=== PATIENT | female | born 1935 | race Caucasian/White ===

== ENCOUNTER → 2017-04-06 17:30 | Outpatient (CLI) | payer MEDICARE | END | disposition home or self-care (01) | LOC: D.LABREF 17:30 | DX: I50.9 Heart failure, unspecified (principal); E11.9 Type 2 diabetes mellitus without complications; N17.9 Acute kidney failure, unspecified; J81.1 Chronic pulmonary edema ==

== ENCOUNTER 2017-04-19 14:25 | Inpatient (IN) | payer MEDICARE, BC ==
[~2017-04-19] VITALS: Ht 149.9 cm; Wt 59.8 kg
[2017-04-19 16:41] LABS: BASOPHILS 0.2 % (0-2); EOSINOPHILS 0.7 % (0-7); HEMATOCRIT 39.4 % (36.0-48.0); HEMOGLOBIN 11.2 g/dL (12-16); IMMATURE GRANULOCYTES 1.9 % (0-5); LYMPHOCYTES 16.2 % (15-50); MCH 33.5 pg (26.0-34.0); MCHC 28.4 g/dL (31.0-37.0); MEAN PLATELET VOLUME 10.1 fL (7.4-10.4); MONOCYTES 5.2 % (2-11); NEUTROPHILS 75.8 % (40-80); PLATELET COUNT 155 10x3/uL (130-400); RBC 3.34 10x6/uL (4.00-5.40); RDW 13.3 % (11.5-14.5); WBC 5.7 10x3/uL (4.8-10.8)
[2017-04-19 17:22] LABS: ALBUMIN 2.8 g/dL (3.4-5.0); ANION GAP 0.3 mmol/L (8-16); BILIRUBIN - TOTAL 0.35 mg/dL (0.2-1.3); CALCIUM 10.4 mg/dL (8.5-10.1); CREATININE - SERUM 0.9 mg/dL (0.6-1.3); POTASSIUM - SERUM 5.3 mmol/L (3.5-5.1); PROTEIN - SERUM 5.8 g/dL (6.4-8.2)
[2017-04-19 18:21] LABS: APPEARANCE CLEAR (CLEAR); BILIRUBIN NEGATIVE (NEGATIVE); COLOR YELLOW (YELLOW); GLUCOSE NEGATIVE (NEGATIVE); KETONE NEGATIVE (NEGATIVE); LEUKOCYTE ESTERASE NEGATIVE (NEGATIVE); NITRITE NEGATIVE (NEGATIVE); PROTEIN TRACE mg/dL (NEGATIVE); UROBILINOGEN NORMAL (NORMAL)
--- NOTE | 2017-04-19 18:51 | NUR ---
CM Emergency contact #[phone], America Watkins (dtr). Marily Olivo RN CM
--- NOTE | 2017-04-19 23:03 | NUR ---
REC'D PATIENT SITTING UP IN BED BY STRETCHER. IS ALERT AND ORIENTED X4. DENIED PAIN AT THIS TIME. HAS EDEMA IN BILATERAL LOWER LEGS +3 AND BILATERAL ARMS. IS HUNGRY WILL BRING HER A SANDWICH. INSTRUCTED TO CALL IF NEEDED ANYTHING. VERBALIZED UNDERSTANDING. BED LOW, LOCKED, CALL LIGHT IN REACH.
[2017-04-20 00:25] VITALS: BP 151/62
--- NOTE | 2017-04-20 01:05 | NUR ---
PATIENT IS ASLEEP. NO DISTRESS NOTED. WILL CONT TO MONITOR. BED LOW, LOCKED, CALL LIGHT IN REACH.
[2017-04-20 04:33] VITALS: BP 135/69
--- NOTE | 2017-04-20 06:42 | NUR ---
PATIENT IS RESTING IN BED. CHANGED BED COMPLETY OUT WITH KEI JEFFRIES. ADMINISTERED MEDS PRESCRIBED. DENIED FURTHER NEEDS AT THIS TIME. INSTRUCTED TO CALL IF NEEDED ANYTHING. BED LOW, LOCKED, CALL LIGHT IN REACH.
[2017-04-20 07:07] LABS: ANION GAP 1.1 mmol/L (8-16); CALCIUM 10.3 mg/dL (8.5-10.1); CARBON DIOXIDE 44.8 mmol/L (21.0-32.0); CREATININE - SERUM 0.9 mg/dL (0.6-1.3); POTASSIUM - SERUM 4.9 mmol/L (3.5-5.1)
[2017-04-20] MEDS ORDERED: VITAMIN D250000 UNIT PO (07:13)
[2017-04-20] MEDS ORDERED: FOLATE0.4 MG PO (07:14)
[2017-04-20] MEDS ORDERED: METFORMIN HCL500 M1 PO (07:15)
[2017-04-20] MEDS ORDERED: ISOSORBIDE MONO30 M1 PO (07:15)
[2017-04-20] MEDS ORDERED: LOVASTATIN40 MG PO (07:15)
[2017-04-20] MEDS ORDERED: COREG12.5 MG PO (07:15)
[2017-04-20] MEDS ORDERED: ZYLOPRIM100 MG PO (07:15)
[2017-04-20] MEDS ORDERED: ULTRACET TABLET1 TAB PO (07:16)
[2017-04-20] MEDS ORDERED: K-DUR20 MEQ PO (07:17)
--- NOTE | 2017-04-20 07:45 | NUR ---
AM ROUNDING- RECEIVED REPORT FROM INDEPENDENT BEAUTY CONSULTANT NURSE SERGIO. PT IS CURRENTLY LAYING IN BED ON BACK WITH EYES CLOSED RESTING. DNR PER REPORT. ON 02 AT 3L VIA NC. NO MONITOR. IV SEEN TO LEFT WRIST THAT IS CURRENTLY SALINE LOCKED. BEDSIDE COMMODE AT BEDSIDE. LAB CALLED DURING REPORT WITH CRITICAL LAB (C02 OF 44.8), SERGIO FILLED OUT CRITICAL LAB SHEET AND PAGED ELIZ VALERO BRINE TANK OPERATOR TO INFORM HER OF THIS. WILL AWAIT CALLBACK. WILL CONTINUE TO MONITOR AND CONTINUE WITH PLAN OF CARE.
--- NOTE | 2017-04-20 07:49 | NUR ---
AM ROUNDING- RECEIVED REPORT FROM CORPORATE AFFAIRS MANAGER NURSE SERGIO. PT IS CURRENTLY LAYING IN BED ON BACK WITH EYES CLOSED RESTING. DNR PER REPORT. ON 02 AT 3L VIA NC. NO MONITOR. IV SEEN TO LEFT WRIST THAT IS CURRENTLY SALINE LOCKED. LAB CALLED DURING REPORT WITH CRITICAL LAB (C02 OF 44.8). SERGIO FILLED OUT CRITICAL LAB SHEET AND PAGED ELIZ VALERO NP. WILL AWAIT CALLBACK. WILL CONTINUE TO MONITOR AND CONTINUE WITH PLAN OF CARE.
[2017-04-20 08:00] VITALS: BP 84/47
--- NOTE | 2017-04-20 10:12 | HP ---
PATIENT: GERMAINE PRABHAKAR MEDICAL RECORD: [id number] ACCOUNT: [id number] LOCATION:[address] : 37 ADMISSION DATE: 04/19/17 HISTORY AND PHYSICAL EXAMINATION HISTORY OF PRESENT ILLNESS: Ms. Prabhakar is a 81-year-old white female that presents to the Emergency Room with increasing shortness of breath. Her primary care physician is Dr. Pao Gee. On presentation to the Emergency Room, she was found to have bilateral pleural effusions. There is some question of an infiltrate, but she is afebrile and a normal white count with normal differential. She is admitted at this time with congestive heart failure. Her BUN is markedly elevated. She has marked edema. She has no infectious signs or symptoms. PAST MEDICAL HISTORY: Significant for known congestive heart failure, COPD, diabetes mellitus, renal insufficiency, gout, hyperlipidemia, O2 dependence. She is a DNR. ALLERGIES: SULFA. HOME MEDICATIONS: Include allopurinol 100 mg daily, aspirin 325 daily, Coreg 12.5 twice a day, folic acid 400 mg daily, isosorbide mononitrate 30 mg one half tab daily, lovastatin 40 mg a day, metformin 500 daily, O2, spironolactone 50 twice a day, tramadol p.r.n. and trazodone at bedtime. FAMILY HISTORY: Noncontributory. SOCIAL HISTORY: Noncontributory. The patient is a very poor historian and no family are present. REVIEW OF SYSTEMS: She really does not have much in the way of complaints. Denies any chest pain. She does complain of shortness of breath and increasing swelling. No abdominal pain. No nausea or vomiting. PHYSICAL EXAMINATION: HEENT: Head is normocephalic, sclerae nonicteric. Mucous membranes are moist. HEART: Regular with II/ murmur. LUNGS: With bilateral rales. ABDOMEN: Soft. EXTREMITIES: Lower extremities reveal marked edema with venous stasis. NEUROLOGIC: Without any acute changes. IMPRESSION: Congestive heart failure. PLAN: Admit, IV diuretics. See orders for plan. TRANSINT:[id number] Voice Confirmation ID: [id number] DOCUMENT ID: [id number] HISTORY AND PHYSICAL [id number] GERMAINE PRABHAKAR MARISOL GU DO at 1012 CC: [id number] DICTATION DATE: 04/19/17 182 ACID STRENGTH INSPECTOR: 04/19/172110 ADM IN [facility] [address] [id number]
[2017-04-20 12:00] VITALS: BP 131/48
[2017-04-20 13:05] VITALS: Ht 149.9 cm; Wt 59.8 kg
--- NOTE | 2017-04-20 13:42 | NUR ---
DR. GU ON UNIT. INFORMED HIM OF PTS CRITICAL CO2 LEVEL (44.8). NO NEW ORDERS RECEIVED.
--- NOTE | 2017-04-20 13:51 | NUR ---
DNR ORDER SHEET FOR HOSPITAL SIGNED BY DR. CARPIO, WITNESSED BY MYSELF AND PRISCILA VARELA. DNR SHEET PLACED IN CHART.
[2017-04-20 16:00] VITALS: BP 132/50
--- NOTE | 2017-04-20 18:23 | NUR ---
PT IS CURRENTLY SITTING UP IN BED EATING DINNER. PT DENIES ANY NEED AT CURRENT TIME. WILL CONTINUE TO MONITOR.
--- NOTE | 2017-04-20 21:28 | NUR ---
HS MEDS GIVEN WITH FRESH ICE WATER. BS 186, NO INSULIN GIVEN AT PT REQUEST. PT DENIES PAIN OR NEEDS, BED LOW, CL IN REACH.
[2017-04-21] VITALS (7 sets, daily range): BP systolic 102–130; BP diastolic 40–80
--- NOTE | 2017-04-21 01:01 | NUR ---
RESTING WITH EYES CLOSED, RESPERATIONS EVEN, NO S/S DISTRESS NOTED.
[2017-04-21 06:32] LABS: CALC OSMOLALITY 302 mosm/kg (275-300); CALCIUM 9.6 mg/dL (8.5-10.1); CHLORIDE - SERUM 102 mmol/L (98-107); CREATININE - SERUM 1.1 mg/dL (0.6-1.3); GLUCOSE 124 mg/dL (74-106); POTASSIUM - SERUM 4.4 mmol/L (3.5-5.1); PRO BNP 7864 pg/mL (0-450); SODIUM 146 mmol/L (136-145); UREA NITROGEN 42 mg/dL (7-18); eGFR NON AFRICAN AMERICAN 51 mL/min (90-120)
[2017-04-21 06:33] LABS: CARBON DIOXIDE 49.4 mmol/L (21.0-32.0)
--- NOTE | 2017-04-21 07:40 | NUR ---
AM ROUNDING- RECEIVED REPORT FROM STAVE HEWER NURSE HANNY. PT IS CURRENTLY LAYING IN BED ON BACK WITH EYES CLOSED RESTING. DNR PER ORDER. ON 02 AT 3L VIA NC. NO MONITOR. IV SEEN TO LEFT WRIST THAT IS CURRENTLY SALINE LOCKED. NO NEED AT CURRENT TIME. WILL CONTINUE TO MONITOR AND CONTINUE WITH PLAN OF CARE.
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
--- NOTE | 2017-04-21 17:34 | NUR ---
PT IS CURRENTLY SITTING UP IN BED WITH EYES OPEN EATING DINNER AND WATCHING TV. PT DENIES ANY NEED AT CURRENT TIME. WILL CONTINUE TO MONITOR.
--- NOTE | 2017-04-21 19:30 | NUR ---
RESUMED CARE OF PT, LYING IN BED WITH EYES CLOSED RESPIRATIONS EVEN AND UNLABORED ON 3LPM VIA NC. LEFT WRIST SALINE LOCKED. CALL LIGHT IN REACH. WILL CONTINUE TO MONITOR. SEE NURSE ASSESSMENT.
--- NOTE | 2017-04-22 02:19 | NUR ---
LYING IN BED RESPIRATIONS EVEN AND UNLABORED. CALL LIGHT IN REACH. WILL CONTINUE TO MONITOR.
[2017-04-22 03:44] VITALS: BP 144/44
[2017-04-22 06:35] LABS: ANION GAP 1.1 mmol/L (8-16); POTASSIUM - SERUM 4.1 mmol/L (3.5-5.1)
[2017-04-22 08:01] VITALS: BP 129/45
--- NOTE | 2017-04-22 08:20 | NUR ---
INTRODUCED MYSELF TO PT PRIMARY RN FOR TODAYS SHIFT. SHIFT ASSESSMENT COMPLETED. PT IS A&O AND RESTING QUIETLY SITTING UP IN BED EATING BREAKFAST. RR NONLABORED WITH NC @3L IN PLACE. PT HAS A L.WRIST PIV WITH DRSG CDI AND SWAB CAPS IN USE. BILAT LE ON PT ARE SWOLLEN +3 PITTING EDEMA WITH WEAK PULSES AND REDDENED THIN SKIN. PT ALSO HAS WEEPING EDEMA TO HER R.FA AND THAT ARM IS RED WITH THIN SKIN WELL. PROPPED BILAT FEET UP ON A PILLOW ALONG WITH THE R.ARM. PT VOICED THANKS. PASSED PTS MORNING MEDS WITH APPLESAUCE SHE REQUESTED. NO FURTHER NEEDS AT THIS TIME. CL IN REACH, BED IN LOWEST, SIDE RAILS X2. WILL CTM.
[2017-04-22 12:09] VITALS: BP 111/49
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
[2017-04-22 16:36] VITALS: BP 126/50
--- NOTE | 2017-04-22 18:21 | NUR ---
LEFT WRIST PIV INFILTRATED. D/C WITH CATHETER TIP FULLY INTACT. NEW ACCESS GAINED WITH 20 GUAGE IN L.HAND X1 ATTEMPT. PT INCONTINENT AND HAS SOILED LINENS WITH URINE. CHANGED OUT LINENS AND CLEANED PT UP. PT NOW RESTING QUIETLY IN BED DENIES ANY CURRENT PAIN OR NEEDS. WILL CTM.
--- NOTE | 2017-04-22 21:06 | NUR ---
HS MEDS GIVEN WITH APPLE SAUCE. BS 138, NO COVERAGE PER S/S. PT DENIES PAIN OR NEEDS, BED LOW, CL IN REACH, WILL CONT TO MONITOR.
[2017-04-22 21:42] VITALS: BP 113/45
[2017-04-22 23:39] VITALS: BP 111/33
--- NOTE | 2017-04-23 01:14 | NUR ---
AWAKE IN BED, DENIES NEEDS, WILL CONT TO MONITOR.
[2017-04-23 04:01] VITALS: BP 121/43
--- NOTE | 2017-04-23 04:16 | NUR ---
RESTING WITH EYES CLOSED, RESPERATIONS EVEN, NO S/S DISTRESS NOTED.
[2017-04-23 06:01] LABS: BASOPHILS 0 % (0-2); EOSINOPHILS 1.9 % (0-7); HEMATOCRIT 32.9 % (36.0-48.0); HEMOGLOBIN 9.8 g/dL (12-16); LYMPHOCYTES 21.5 % (15-50); MCH 33.6 pg (26.0-34.0); MCHC 29.8 g/dL (31.0-37.0); MCV 112.7 fL (80.0-100.0); MEAN PLATELET VOLUME 10.1 fL (7.4-10.4); MONOCYTES 8.4 % (2-11); NEUTROPHILS 67.2 % (40-80); PLATELET COUNT 125 10x3/uL (130-400); RBC 2.92 10x6/uL (4.00-5.40); RDW 12.8 % (11.5-14.5); WBC 6.9 10x3/uL (4.8-10.8)
[2017-04-23 06:24] LABS: CALC OSMOLALITY 297 mosm/kg (275-300); CHLORIDE - SERUM 98 mmol/L (98-107); GLUCOSE 117 mg/dL (74-106); POTASSIUM - SERUM 3.5 mmol/L (3.5-5.1); PRO BNP 5735 pg/mL (0-450); SODIUM 145 mmol/L (136-145); UREA NITROGEN 36 mg/dL (7-18); eGFR NON AFRICAN AMERICAN 57 mL/min (90-120)
[2017-04-23 06:37] LABS: CARBON DIOXIDE 53.3 mmol/L (21.0-32.0)
[2017-04-23 08:24] VITALS: BP 123/62
--- NOTE | 2017-04-23 10:02 | NUR ---
CM Note: Patients daughter (America Jeff) called to speak with CM about her mother. Daughter stated that the patient had fallen at home and [facility], [facility] [place]. [facility] sent her home with them coming out to her house 6 hours a day (3 hours in AM and 3 hours in PM ) to help with daily needs. [facility] was also coming to the house, but she is not sure how often they were coming. Daughter also states that she has spoke with her mom and she is confused at times. Both patients children who live out of state are coming in on April 27- May 05 to assess pts. needs. Daughter was not sure what type of care her mom would need and mentioned about assisted living in [place] where the daughter lives, but would know more once she arrived in [place]. Inpatient rehab may be an option? Prescreening referral sent. CM will continue to follow and assist as needed with planning/needs Ethel Quevedo RN
--- NOTE | 2017-04-23 10:21 | NUR ---
Rehab Note- Acute Rehab Prescreen Order received. [facility] PT Eval for possible IRF stay. Will follow the patient at this time. Thank you for this referral! Cathie Berger RN Clinical Liaison, [facility] Rehab/[place]
[2017-04-23 12:01] VITALS: BP 106/45
--- NOTE | 2017-04-23 12:03 | NUR ---
FSBS 296. PT REC'D 6 UNITS OF INSULIN PER SS. PT IS SITTING UP IN BED RESTING QUIETLY WATCHING TV. DENIES ANY CURRENT PAIN OR NEEDS JUST WAITING ON LUNCH. CL IN REACH, BED IN LOWEST, SIDE RAILS X2 AND BUILT IN BED ALARM ON. WILL CTM.
[2017-04-23 16:00] VITALS: BP 129/56
--- NOTE | 2017-04-23 17:54 | NUR ---
PTS L.HAND INFILTRATED. D/C WITH CATHETER TIP FULLY INTACT. NEW 22 GUAGE STARTED IN PTS L.FA WITH DRSG CDI AND SWAB CAPS IN USE.
--- NOTE | 2017-04-23 18:08 | EC ---
PATIENT:GERMAINE CANCHOLA DATE OF SERVICE: 04/19/17 SEX: F MEDICAL RECORD: [id number] DATE OF : 37 LOCATION:D.M2 D.213 AGE OF PATIENT: 81 ADMISSION DATE: 04/19/17 REFERRING PHYSICIAN: INTERPRETING PHYSICIAN: GWENDOLYN OBANDO MD ECHOCARDIOGRAM REPORT ECHO CHARGES 4 ECHO COMPLETE CLINICAL DIAGNOSIS: CHF ECHOCARDIOGRAPHIC MEASUREMENTS (adult normal given) AC root (d.<3.7cm) 3.1 LV Septum d (<1.2 cm> 1.7 Valve Excursion 1.9 LV Septum (systole) 1.8 Left Atria (s.<4.0cm> 4.7 LVPW d(<1.2cm) 1.4 RV (d.<2.3cm) 2.1 LVPW (sytole) 1.9 LV diastole(<5.6CM) 4.4 MV E-F(>70mm/sec) LV systole 2.2 LVOT Diameter 1.7 MV exc.(>10mm) Est.ejection fraction (50-75%) Pericardial Effusion N DOPPLER: LVIT A 158 E 107 LA RVSP 40.0 LVOT 97.0 AOP1/2T Asc. Ao 216 RVOT 83.0 RA PA 128 AV Gradient Peak 19.0 AV Mean 7.0 AV Area 1.1 MV Gradient Peak 14.0 MV Mean 4.3 MV Area COMMENTS: Green Meat Grader: Laron ONTIVEROSOE [employer] Set Up Mechanic:1 Dr. Obando TAPE# PACS DATE OF SERVICE: 04/21/2017 ECHOCARDIOGRAM FINDINGS: 1. Left ventricular chamber size is within normal limits. Left ventricular systolic function is normal. Overall ejection fraction estimated at 60%. 2. Left atrium is enlarged at 4.7 cm. Right atrium and right ventricular chamber sizes are mildly dilated. 3. Valvular structures have normal structure and motion. ECHOCARDIOGRAM REPORT [id number] GERMAINE CANCHOLA 4. Doppler interrogation reveals trace mitral regurgitation, moderate tricuspid regurgitation, no other valvular insufficiency or stenosis. Pulmonary systolic pressure is upper limits of normal to mildly elevated at 40 mmHg. 5. No evidence of pericardial effusion or left ventricular thrombus. TRANSINT:[id number] Voice Confirmation ID: [id number] DOCUMENT ID: [id number] GWENDOLYN OBANDO MD at 1808 CC: [id number] DICTATION DATE: 04/21/17 1716 BAND REAMER MACHINE OPERATOR: 04/22/17 0235 ADM IN [facility] [address] [id number]
--- NOTE | 2017-04-23 19:20 | NUR ---
RECEIVED REPORT, PT IS CONFUSED, BED IS LOW, SRX2, BED ALARM IS ON, WILL CONTINUE WITH PLAN OF CARE
[2017-04-23 20:19] VITALS: BP 115/54
--- NOTE | 2017-04-23 22:00 | NUR ---
PLACED STEPHENSON USING SHOE STITCHER ODD,URINE IS FLOWING
[2017-04-24 00:41] VITALS: BP 109/42
--- NOTE | 2017-04-24 04:00 | NUR ---
ASSESSMEMT COMPLETE, SEE FLOWSHEET, PT SLEEPING, NO DISTRESS NOTICED, BED ALARM IS ON, CALL LIGHT IN REACH, WILL CONTINUE TO MONITOR
[2017-04-24 04:23] VITALS: BP 112/48
[2017-04-24 05:47] LABS: BASOPHILS 0 % (0-2); EOSINOPHILS 0 % (0-7); HEMATOCRIT 32.8 % (36.0-48.0); HEMOGLOBIN 9.9 g/dL (12-16); IMMATURE GRANULOCYTES 0.5 % (0-5); LYMPHOCYTES 14.4 % (15-50); MCH 33.6 pg (26.0-34.0); MCHC 30.2 g/dL (31.0-37.0); MCV 111.2 fL (80.0-100.0); MEAN PLATELET VOLUME 10.3 fL (7.4-10.4); MONOCYTES 1.6 % (2-11); NEUTROPHILS 83.5 % (40-80); PLATELET COUNT 135 10x3/uL (130-400); RBC 2.95 10x6/uL (4.00-5.40); RDW 12.8 % (11.5-14.5); WBC 6.3 10x3/uL (4.8-10.8)
[2017-04-24 06:09] LABS: ANION GAP 2.9 mmol/L (8-16); CALCIUM 8.8 mg/dL (8.5-10.1); CREATININE - SERUM 1.1 mg/dL (0.6-1.3); POTASSIUM - SERUM 3.7 mmol/L (3.5-5.1)
[2017-04-24 06:51] LABS: CARBON DIOXIDE 49.8 mmol/L (21.0-32.0)
--- NOTE | 2017-04-24 07:15 | NUR ---
AM ROUNDS- PT IN BED, SLEEPING AT THIS TIME. CALL LIGHT IN REACH, NAD NOTED, WILL CONTINUE TO MONITOR.
[2017-04-24 08:00] VITALS: BP 103/36
--- NOTE | 2017-04-24 08:39 | NUR ---
ADMINISTERED MORNING MEDICATIONS, WITH APPLE SAUCE. PT IN BED, EATING BREAKFAST. DENIES ANY NEEDS AT THIS TIME. CALL LIGHT IN REACH, NAD NOTED, WILL CONTINUE TO MONITOR.
--- NOTE | 2017-04-24 11:01 | NUR ---
Nutrition Follow Up: Pt reported that she was not feeling too good. She said that her appetite was fair. RD discussed changing diet to NCS due to elevated blood sugar but pt refused stating that she "really wanted a piece of pie." Pt is eating 79% meal avg on a PRABHAKAR diet. Wt loss of ~33# since admit noted. No BM since admit. Labs reviewed - Glucose elevated. Meds noted including Lasix, Solu-Medrol, Folic Acid, Humalog. Rec continue current diet. RD will monitor pt progress.
--- NOTE | 2017-04-24 11:16 | NUR ---
BLOOD SUGAR OF 376, GAVE 10 UNITS OF HUMALOG PER S/S. PT IN BED, DENIES ANY NEEDS AT THIS TIME. CALL LIGHT IN REACH, NAD NOTED, WILL CONTINUE TO MONITOR.
[2017-04-24 12:00] VITALS: BP 122/38
[2017-04-24 15:52] VITALS: BP 124/44
[2017-04-24] MEDS ORDERED: IPRAT-ALBUT 0.5-3 ML INH (16:02)
[2017-04-24] MEDS ORDERED: PROTONIX40 MG PO (16:03)
[2017-04-24] MEDS ORDERED: ASPIRIN325 MG PO (16:03)
[2017-04-24] MEDS ORDERED: LASIX INJ40 MG/4 ML IV (16:03)
[2017-04-24] MEDS ORDERED: HUMALOG 30100 UNITS/ SC ×2 (16:04→18:23)
[2017-04-24] MEDS ORDERED: MUCINEX600 MG PO (16:05)
[2017-04-24] MEDS ORDERED: SINGULAIR10 MG PO (16:05)
[2017-04-24] MEDS ORDERED: PULMICORT0.5 MG/21 INH (16:05)
[2017-04-24] MEDS ORDERED: BROVANA15 MCG/2 M INH (16:06)
[2017-04-24] MEDS ORDERED: SOLU MEDROL IV (16:07)
--- NOTE | 2017-04-24 17:00 | NUR ---
BLOOD SUGAR OF 423, 12 UNIT OF HUMALOG GIVEN PER SLIDING SCALE AND ELIZ VALERO NOTIFIED. PT EATING DINNER, DENIES ANY NEEDS AT THIS TIME. CALL LIGHT IN REACH, NAD NOTED, WILL CONTINUE TO MONITOR.
--- NOTE | 2017-04-24 17:21 | NUR ---
NOTIFIED ELIZ VALERO ABOUT BLOOD SUGAR OF 423. INFOMRED HER THAT I GAVE PT 12UNITS PER SLIDING SCALE. ELIZ STATED TO CHANGE HER SLIDING SCALE TO INTERMITTEN.
[2017-04-24] MEDS ORDERED: FUROSEMIDE20 MG PO (18:21)
--- NOTE | 2017-04-24 19:44 | NUR ---
CALLED REPORT TO [facility] IN REHAB, PT DISCHARGED TO REHAB, TAKEN DOWN VIA WHEELCHAIR
== END 2017-04-24 19:48 | DRG 291 ==
LOC: D.ER 14:25 → D.M2 17:20
PROVIDERS: Emergency Medicine; Family Medicine; ADMIT Family Medicine
PROC: 0T9B70Z Drainage of Bladder with Drainage Device, Via Natural or Artificial Opening (ICD-10-PCS; principal; 2017-04-24)
DX: I13.0 Hypertensive heart and chronic kidney disease with heart failure and stage 1 through stage 4 chronic kidney disease, or unspecified chronic kidney disease (principal); I50.31 Acute diastolic (congestive) heart failure; E87.0 Hyperosmolality and hypernatremia; E11.22 Type 2 diabetes mellitus with diabetic chronic kidney disease; E11.65 Type 2 diabetes mellitus with hyperglycemia; J44.9 Chronic obstructive pulmonary disease, unspecified; Z66 Do not resuscitate; I08.1 Rheumatic disorders of both mitral and tricuspid valves; E78.5 Hyperlipidemia, unspecified; N18.3 Chronic kidney disease, stage 3 (moderate)

== ENCOUNTER 2017-04-24 16:49 | Inpatient (IN) | payer MEDICARE, BC ==
[~2017-04-24] VITALS: Ht 149.9 cm; Wt 53.6 kg
[~2017-04-24 16:49] MED LIST: ASPIRIN325 MG PO; BROVANA15 MCG/2 M INH; COREG12.5 MG PO; FOLATE0.4 MG PO; HUMALOG 30100 UNITS/ SC; IPRAT-ALBUT 0.5-3 ML INH; ISOSORBIDE MONO30 M1 PO; K-DUR20 MEQ PO; LASIX INJ40 MG/4 ML IV; LOVASTATIN40 MG PO; METFORMIN HCL500 M1 PO; MUCINEX600 MG PO; PROTONIX40 MG PO; PULMICORT0.5 MG/21 INH; SINGULAIR10 MG PO; SOLU MEDROL IV; ULTRACET TABLET1 TAB PO; VITAMIN D250000 UNIT PO; ZYLOPRIM100 MG PO
[2017-04-24] MEDS ORDERED: FUROSEMIDE20 MG PO (18:21)
[2017-04-24] MEDS ORDERED: HUMALOG 30100 UNITS/ SC (18:23)
--- NOTE | 2017-04-24 20:00 | NUR ---
PT RECEIVED TO UNIT AT 1940 IN WHEELCHAIR WITH NURSE AND AID FROM MEDICAL SURGICAL FLOOR. PT TRANSFERED WITH MOD ASSIST FROM WHEELCHAIR TO BED. RECEIVING O2 VIA NASAL CANULA AT 3LPM. REQUEST PHONE NUMBER FOR DAUGHTER AND IT WAS GIVEN. PT ORIENTED TO ROOM, PHONE, BED, AND CALL LIGHT. NO OTHER NEEDS MADE KNOWN. CALL LIGHT IN REACH.
[2017-04-24 22:49] LABS: CALCIUM 8.6 mg/dL (8.5-10.1); CREATININE - SERUM 1.3 mg/dL (0.6-1.3)
[2017-04-24 22:58] LABS: ANION GAP -1.9 mmol/L (8-16); POTASSIUM - SERUM 3.1 mmol/L (3.5-5.1)
--- NOTE | 2017-04-24 23:43 | NUR ---
LEFT MESSAGE FOR DR. MONTANA RE CARBON DIOXIDE AND POTASSIUM LAB VALUES.
--- NOTE | 2017-04-24 23:55 | NUR ---
PT IN BED CONTINUES TO REQUEST TO TALK TO DAUGHTER. NURSE ATTEMPTS AND RECEIVES BUSY SIGNAL X3. RECIEVED HS MEDICATIONS PER MAR WITHOUT DIFFICULTY. NO OTHER CONCERNS MADE KNOWN. CALL LIGHT IN REACH. WILL CONTINUE TO OBSERVE.
--- NOTE | 2017-04-25 00:09 | NUR ---
decreased oxygen to 2 l/nc - Pulse Ox was 99 percent at 6L.
[2017-04-25 01:43] VITALS: BP 107/45
--- NOTE | 2017-04-25 04:00 | NUR ---
PT IN BED WITH EYES OPEN. FREQUENTLY CALLING NURSE STATING SHE CANNOT FEEL O2 COMING FROM NASAL CANNULA. WHEN ASSESSED O2 CAN BE HEARD AND FELT COMING FROM CANNULA. NO OTHER NEEDS MADE KNOWN. CALL LIGHT IN REACH.
[2017-04-25 06:33] LABS: BASOPHILS 0 % (0-2); EOSINOPHILS 0 % (0-7); HEMOGLOBIN 10.3 g/dL (12-16); IMMATURE GRANULOCYTES 0.3 % (0-5); LYMPHOCYTES 8.5 % (15-50); MCH 33.6 pg (26.0-34.0); MCHC 30.3 g/dL (31.0-37.0); MCV 110.7 fL (80.0-100.0); MEAN PLATELET VOLUME 10.5 fL (7.4-10.4); MONOCYTES 1.3 % (2-11); NEUTROPHILS 89.9 % (40-80); PLATELET COUNT 154 10x3/uL (130-400); RBC 3.07 10x6/uL (4.00-5.40); RDW 12.8 % (11.5-14.5)
[2017-04-25 06:34] LABS: WBC 9.3 10x3/uL (4.8-10.8)
[2017-04-25 06:48] LABS: CALC OSMOLALITY 304 mosm/kg (275-300); CALCIUM 8.1 mg/dL (8.5-10.1); CHLORIDE - SERUM 95 mmol/L (98-107); CREATININE - SERUM 1.3 mg/dL (0.6-1.3); GLUCOSE 174 mg/dL (74-106); SODIUM 143 mmol/L (136-145); UREA NITROGEN 58 mg/dL (7-18); eGFR NON AFRICAN AMERICAN 42 mL/min (90-120)
[2017-04-25 07:22] LABS: POTASSIUM - SERUM 3.9 mmol/L (3.5-5.1)
[2017-04-25 07:23] LABS: CARBON DIOXIDE 53.8 mmol/L (21.0-32.0)
[2017-04-25 11:36] VITALS: BP 124/43
[2017-04-25 12:45] VITALS: Ht 149.9 cm; Wt 53.6 kg
[2017-04-25 20:19] VITALS: BP 126/49
--- NOTE | 2017-04-25 23:05 | NUR ---
PT. IN BED WITH HOB UP FOR COMFORT. PT. AWAKENS EASILY SOON YOU OPEN THE DOOR TO ROOM. PT. ASKS MULTIPLE QUESTIONS EVERY TIME I'M IN THE ROOM AND FOR THE MOST PART THEY ARE THE SAME QUESTIONS. PT. VERY CONFUSED AND DOESN'T UNDERSTAND WHERE SHE IS AND WHY. TRIED TO EXPLAIN BUT PT. UNABLE TO RETAIN INFORMATION. CALL LIGHT WITHIN REACH THERE ARE NO VOICED NEEDS.
--- NOTE | 2017-04-26 03:02 | NUR ---
PT. IN BED WITH HOB UP FOR COMFORT WITH EYES CLOSED AND RESP. EVEN. O2 ON VIA N/C @ 3LMIN AND SHE HAS HER CALL LIGHT WITHIN REACH. SEEMA TO BSD WITHOUT PROBLEMS.
[2017-04-26 07:12] LABS: BASOPHILS 0 % (0-2); EOSINOPHILS 0 % (0-7); HEMATOCRIT 33.3 % (36.0-48.0); HEMOGLOBIN 10.1 g/dL (12-16); IMMATURE GRANULOCYTES 0.4 % (0-5); LYMPHOCYTES 5.8 % (15-50); MCH 33.8 pg (26.0-34.0); MCHC 30.3 g/dL (31.0-37.0); MCV 111.4 fL (80.0-100.0); MEAN PLATELET VOLUME 10.8 fL (7.4-10.4); MONOCYTES 2.8 % (2-11); PLATELET COUNT 149 10x3/uL (130-400); RBC 2.99 10x6/uL (4.00-5.40); RDW 12.9 % (11.5-14.5); WBC 7.2 10x3/uL (4.8-10.8)
[2017-04-26 07:35] LABS: ANION GAP 0.5 mmol/L (8-16); CALCIUM 8.4 mg/dL (8.5-10.1); CREATININE - SERUM 1.4 mg/dL (0.6-1.3); POTASSIUM - SERUM 4.1 mmol/L (3.5-5.1)
--- NOTE | 2017-04-26 07:44 | NUR ---
RESTING QUIETLY IN BED CALL LIGHT IN REACH
[2017-04-26 07:45] LABS: CARBON DIOXIDE 50.6 mmol/L (21.0-32.0)
--- NOTE | 2017-04-26 09:43 | NUR ---
PATIENT REQUESTED PRN PAIN MEDICATION FOR BACK PAIN, GIVEN. MEPILEX DRESSING APPLIED TO COCCYX FOR OPEN AREA/REDNESS.
[2017-04-26 11:18] VITALS: BP 99/42
--- NOTE | 2017-04-26 12:00 | NUR ---
GLUCOSE LEVEL 312. TWELEVE UNITS OF SLIDING SCALE INSULIN GIVEN
--- NOTE | 2017-04-26 14:34 | NUR ---
PATIENT ALERT TO SELF ONLY. BED AND CHAIR ALARM ON. USING CALL LIGHT FOR NEEDS. OXYGEN AT 3L PER N/C. STEPHENSON CATH INTACT. BLADDER TRAINING STARTED.
--- NOTE | 2017-04-26 17:00 | NUR ---
GLUCOSE LEVEL 234. EIGHT UNITS OF SLIDING SCALE INSULIN GIVEN
--- NOTE | 2017-04-26 19:23 | NUR ---
PT RECEIVED IN BED WITH EYES CLOSED AND CHEST RISING. EASILY AROUSED TO VERBAL STIMULI. NO CONCERNS MADE KNOWN AT THIS TIME. CALL LIGHT IN REACH. WILL CONTINUE TO OBSERVE.
[2017-04-26 20:00] VITALS: BP 110/48
--- NOTE | 2017-04-27 01:28 | NUR ---
PT IN BED WITH EYES CLOSED AND CHEST RISING. NO CONCERNS NOTED AT THIS TIME. CALL LIGHT IN REACH. WILL CONTINUE TO OBSERVE.
--- NOTE | 2017-04-27 03:31 | NUR ---
PT IN BED WITH EYES CLOSED AND CHEST RISING. NO CONCERNS NOTED. BLADDER TRAINING CONTINUED. CALL LIGHT IN REACH.
--- NOTE | 2017-04-27 07:45 | NUR ---
PT SITTING UP IN BED HOB 90 DEGREES EYES CLOSED RESTING
[2017-04-27 08:00] VITALS: BP 142/79
--- NOTE | 2017-04-27 09:30 | NUR ---
REMOVED DRESSING FROM BUTTOCKS SCANT AMOUNT OF PINK TINGED DRAINAGE PRESENT, CLEANED AREA WITH WOUND CLEANSER. PRESSURE ULCER STAGE 2 LEFT BUTTOCKS 2cm X 3cm, STAGE 2 PRESSURE ULCER ON RIGHT SIDE OF BUTTOCKS 2 cm X 2cm. APPLIED MEPIPLEX DRESSING.
--- NOTE | 2017-04-27 12:20 | NUR ---
PT SITTING UP IN WHEELCHAIR WATCHING TV CALL LIGHT IN REACH
--- NOTE | 2017-04-27 15:39 | NUR ---
PT SITTING UP IN BED 90 DEGREES WATCHING TV
--- NOTE | 2017-04-27 17:39 | NUR ---
REORIENTED PT TO PLACE, PT IS CONFUSED ON WHERE SHE IS AT TIMES ONCE REORIENTED SHE UNDERSTANDS WHY SHE IS IN REHAB. SITTING UP IN BED 90 DEGREES EATING DINNER.
--- NOTE | 2017-04-27 18:29 | NUR ---
BLADDER TRAINING CONTINUED MAY DISCONTINUE 04/28 600
[2017-04-27 19:00] VITALS: BP 111/69
--- NOTE | 2017-04-27 19:15 | NUR ---
PT RECEIVED IN BED WITH EYES OPEN WATCHING TV. COMPLIANS OF DISCOMFORT TO BILATERAL THIGHS REQUEST PAIN MEDICATION WHICH WAS ADMINISTER PER MAR. NO OTHER CONCERNS. SOME CONFUSION NOTED. CONTINUED BLADDER TRAINING. CALL LIGHT IN REACH. WILL CONTINUE TO OBSERVE.
--- NOTE | 2017-04-28 00:44 | NUR ---
PT IN BED WITH EYES CLOSED AND CHEST RISING. HS MEDICATIONS GIVEN PER MAR WITHOUT DIFFICULTY. BLADDER TRAINING CONTINUED. NO OTHER NEEDS CONCERNS NOTED. CALL LIGHT IN REACH. WILL CONTINUE TO OBSERVE.
--- NOTE | 2017-04-28 04:33 | NUR ---
PT IN BED WITH EYES CLOSED AND CHEST RISING. EASILY AROUSED UPON ENTRY. NO CONCERNS MADE KNOWN. CALL LIGHT IN REACH.
--- NOTE | 2017-04-28 07:34 | NUR ---
PT IN BED WITH EYES CLOSED AND CHEST RISING. AT O600 STEPHENSON CATH WAS DISCONTINUED. PT TOLERATED WELL. REPORTED TO ONCOMING STAFF.
[2017-04-28 08:00] VITALS: BP 130/92
--- NOTE | 2017-04-28 08:32 | NUR ---
SITTING UP EATING BREAKFAST DENIES NEEDS CALL LIGHT IN REACH
--- NOTE | 2017-04-28 09:30 | NUR ---
PATIENT TURNED FRONT DESK AGENT LIGHT. STATED SHE HAD TO GO TO THE BATHROOM. CONT OF URINE. VOIDED LARGE AMOUNT.
--- NOTE | 2017-04-28 11:42 | NUR ---
GLUCOSE LEVEL 294. TEN UNITS OF SLIDING SCALE INSULIN GIVEN
--- NOTE | 2017-04-28 15:32 | NUR ---
PATIENTS DAUGHTER INTO VISIT. REQUESTED TO ATTEND CARE PLAN MEETING ON NDS. REQUESTED TO TALK WITH JAGUAR. THIS NURSE LEFT NOTE WITH JAGUAR SUN.
--- NOTE | 2017-04-28 17:50 | NUR ---
GLUCOSE LEVEL 386. SIXTEEN UNITS OF SLIDING SCALE INSULIN GIVEN.
--- NOTE | 2017-04-28 19:23 | NUR ---
PT WITH CALL LIGHT ON, ROOM ENTERED WITH PT STATING DIFFICULTY BREATHING. PT UP IN WHEELCHAIR LEANING FORWARD, ENCOURAGED TO SIT UP STRAIGHT O2 SAT 98% WITH NASAL CANNULA ON AT 3LPM. PT ENCOURAGED TO TAKE SLOW DEEP BREATHS THROUGH NOSE AND EXHALE THROUGH MOUTH. PT CALMED. PT ABLE TO TRANSFER TO BED WITH MOD ASSIST. HOB AT 45DEGREES. NO SIGN/SYMPTOMS OF DISTRESS NOTED AT TIME OF LEAVING ROOM. CALL LIGHT IN REACH. WILL CONTINUE TO OBSERVE.
--- NOTE | 2017-04-28 23:47 | NUR ---
PT IN BED WITH EYES OPEN WATCHING TV. TRANSFERED TO BEDSIDE COMMODE WITH MODERATE ASSIST. PT CLEANED SELF AFTER URINATION AND RETURNED TO BED. CALL LIGHT IN REACH. WILL CONTINUE TO OBSERVE.
[2017-04-29 02:49] VITALS: BP 109/51
--- NOTE | 2017-04-29 03:43 | NUR ---
PT IN BED WITH EYES CLOSED AND CHEST RISING. NO CONCERNS NOTED AT THIS TIME. CALL LIGHT IN REACH. WILL CONTINUE TO OBSERVE.
--- NOTE | 2017-04-29 06:41 | NUR ---
PT IN BED WITH EYES CLOSED AND CHEST RISING. RECEIVED AM MEDICATIONS WITHOUT DIFFICULTY IN APPLESAUCE. NO CONCERNS NOTED. CALL LIGHT IN REACH.
[2017-04-29 07:34] LABS: BASOPHILS 0 % (0-2); EOSINOPHILS 0 % (0-7); HEMATOCRIT 34.4 % (36.0-48.0); HEMOGLOBIN 10.5 g/dL (12-16); IMMATURE GRANULOCYTES 0.6 % (0-5); LYMPHOCYTES 4.2 % (15-50); MCH 34.1 pg (26.0-34.0); MCHC 30.5 g/dL (31.0-37.0); MCV 111.7 fL (80.0-100.0); MEAN PLATELET VOLUME 10.6 fL (7.4-10.4); MONOCYTES 1.8 % (2-11); NEUTROPHILS 93.4 % (40-80); PLATELET COUNT 154 10x3/uL (130-400); RBC 3.08 10x6/uL (4.00-5.40); RDW 13.2 % (11.5-14.5); WBC 7.8 10x3/uL (4.8-10.8)
[2017-04-29 07:48] LABS: CALC OSMOLALITY 319 mosm/kg (275-300); CALCIUM 8.6 mg/dL (8.5-10.1); CHLORIDE - SERUM 95 mmol/L (98-107); CREATININE - SERUM 1.5 mg/dL (0.6-1.3); GLUCOSE 158 mg/dL (74-106); POTASSIUM - SERUM 3.9 mmol/L (3.5-5.1); SODIUM 146 mmol/L (136-145); UREA NITROGEN 84 mg/dL (7-18); eGFR NON AFRICAN AMERICAN 35 mL/min (90-120)
[2017-04-29 08:02] LABS: CARBON DIOXIDE 57.6 mmol/L (21.0-32.0)
--- NOTE | 2017-04-29 08:17 | NUR ---
SITTING UP EATING BREAKFAST DENIES NEEDS CALL LIGHT IN REACH
--- NOTE | 2017-04-29 10:00 | NUR ---
PATIENT IN REHAB ROOM. DENIES ANY PAIN/DISC AT THIS TIME. DR. Matthew MONTANA IN TO SEE PATIENT. AWARE OF CRITIAL CO2. NEW ORDERS RECEIVED
[2017-04-29 12:21] VITALS: BP 143/110
--- NOTE | 2017-04-29 13:14 | NUR ---
PATIENT IS VERY CONFUSED. BED/CHAIR ALARM ON. PATIENT DOES USE CALL LIGHT FOR NEEDS. CALL LIGHT WITHIN REACH
--- NOTE | 2017-04-29 17:46 | NUR ---
DAUGHTER INTO VISIT. PATIENT SITTING UP IN WHEELCHAIR TO EAT SUPPER. GLUCOSE LEVEL 270, TEN UNITS OF SLIDING SCALE INSULIN GIVEN
[2017-04-29 18:59] VITALS: BP 111/69
--- NOTE | 2017-04-29 19:45 | NUR ---
PT RECEIVED UP IN WHEELCHAIR AT BEDSIDE VISITING WITH FAMILY. COMPLAINED OF SHORTNESS OF BREATH WITH SLOW DEEP BREATHS ENCOURAGED WITH RELIEF NOTED. MOD ASSIST TO BED. NO CONCERNS NOTED AT THIS TIME. NO SIGN/SYMPTOMS OF DISTRESS NOTED. CALL LIGHT IN REACH.
--- NOTE | 2017-04-30 00:09 | NUR ---
PT IN BED WITH EYES CLOSED AND CHEST RISING. NO SIGN/SYMPTOMS OF DISTRESS NOTED. CALL LIGHT IN REACH.
--- NOTE | 2017-04-30 03:29 | NUR ---
PT IN BED WITH EYES CLOSED AND CHEST RISING. NO CONCERNS NOTED AT THIS TIME. CALL LIGHT IN REACH.
--- NOTE | 2017-04-30 08:30 | NUR ---
BREAKFAST SERVED, INTRODUCED SELF TO PT, PT STATES NO NEEDS AT THIS TIME, WILL CONTINUE TO MONITOR, CALL LIGHT WITHIN REACHL.
--- NOTE | 2017-04-30 10:15 | NUR ---
MORNING MEDICATION GIVEN, PT STATES HAS HARD TIME SWALLOWING MEDICATION, GAVE MEDS WHOLE IN APPLESAUCE, PT STILL STATES HAVING HARD TIME SWALLOWING. WILL CRUSH MEDICATION NEXT TIME, WILL CONTINUE TO MONITOR, CALL LIGHT WITHIN REACH.
[2017-04-30 10:33] VITALS: BP 142/55
--- NOTE | 2017-04-30 11:48 | NUR ---
PT SITTING UP IN CHAIR WATCHING TV, PT STATES NO NEW NEEDS AT THIS TIME, WILL CONTIUE TO MONITOR, CALL LIGHT WITHIN REACH.
--- NOTE | 2017-04-30 13:53 | NUR ---
PT WITH OT.
--- NOTE | 2017-04-30 17:23 | NUR ---
PT VISITING WITH FAMILY, PT STATES NO NEEDS AT THIS, WILL CONTINUE MONITOR, CALL LILGHT WITHIN REACH.
--- NOTE | 2017-04-30 17:48 | NUR ---
IN BED EATING.FAMILY AT BEDSIDE.CL IN REACH
--- NOTE | 2017-04-30 20:00 | NUR ---
PT IN BED WITH HOB UP FOR COMFORT. VISITORS IN ROOM. REPOSITIONED PT ON HER RIGHT SIDE. 02 @ 3L VIA N/C. LEFT FA SALINE LOC. TELEMETRY. MEPILEX TO COCCYX C/D/I. FSBS ACHS. BED IN LOWEST POSITION AND CALL LIGHT WITHIN REACH.
[2017-04-30 20:09] VITALS: BP 128/64
--- NOTE | 2017-05-01 | NUR ---
PT IN BED WITH HOB UP FOR COMOFRT. EYES CLOSED. CHEST RISING AND FALLING. BED IN LOWEST POSITION AND CALL LIGHT WITHIN REACH.
--- NOTE | 2017-05-01 00:20 | NUR ---
IN BED, EYES CLOSED. APPEARS COMFORTABLE.
--- NOTE | 2017-05-01 04:00 | NUR ---
PT LYING IN BED. RESTING QUIETLY. BED IN LOWEST POSITION AND CALL LIGHT WITHIN REACH.
[2017-05-01 05:58] LABS: BASOPHILS 0 % (0-2); EOSINOPHILS 0 % (0-7); HEMATOCRIT 35.6 % (36.0-48.0); HEMOGLOBIN 10.9 g/dL (12-16); IMMATURE GRANULOCYTES 0.5 % (0-5); LYMPHOCYTES 3.8 % (15-50); MCH 33.5 pg (26.0-34.0); MCHC 30.6 g/dL (31.0-37.0); MEAN PLATELET VOLUME 10.6 fL (7.4-10.4); MONOCYTES 2.7 % (2-11); PLATELET COUNT 168 10x3/uL (130-400); RBC 3.25 10x6/uL (4.00-5.40); RDW 13.1 % (11.5-14.5); WBC 9.2 10x3/uL (4.8-10.8)
[2017-05-01 06:02] LABS: MCV 109.5 fL (80.0-100.0)
[2017-05-01 06:05] LABS: CALC OSMOLALITY 317 mosm/kg (275-300); CALCIUM 8.9 mg/dL (8.5-10.1); CHLORIDE - SERUM 96 mmol/L (98-107); GLUCOSE 170 mg/dL (74-106); POTASSIUM - SERUM 3.6 mmol/L (3.5-5.1); SODIUM 146 mmol/L (136-145); UREA NITROGEN 78 mg/dL (7-18)
[2017-05-01 06:08] LABS: CREATININE - SERUM 1.1 mg/dL (0.6-1.3); eGFR NON AFRICAN AMERICAN 51 mL/min (90-120)
[2017-05-01 06:09] LABS: CARBON DIOXIDE 55.4 mmol/L (21.0-32.0)
--- NOTE | 2017-05-01 08:00 | NUR ---
SITTING UP IN BED EATING BREAKFAST.CL IN REACH.
[2017-05-01 09:27] VITALS: BP 121/68
--- NOTE | 2017-05-01 09:30 | NUR ---
PATIENT IS VERY CONFUSED. CALL LIGHT WITHIN PATIENTS REACH. BED/CHAIR ALARMS USED. VOICES NO NEEDS AT THIS TIME. DR. Matthew MARES SEE PATIENT. NEW ORDERS RECEIVED.
--- NOTE | 2017-05-01 11:45 | NUR ---
PATIENT SITTING IN REHB ROOM. WORKING WITH OCCUPATIONAL THERAPIST. REQUESTED REGULAR COKE. GLUCOSE LEVEL 304. THIS NURSE EXPLAINED WHY PATIENT CAN NOT HAVE REGULAR COKE. DIET COKE OFFERED, BUT PATIENT STATED, "NO THANK YOU!". TWELEVE UNITS OF SLIDING SCALE INSULIN GIVEN
--- NOTE | 2017-05-01 12:19 | RHP ---
PATIENT: GERMAINE CANCHOLA MEDICAL RECORD: [id number] ACCOUNT: [id number] LOCATION:[facility]1114 : 37 ADMISSION DATE: 04/24/17 REHABILITATION HISTORY AND PHYSICAL EXAMINATION POST ADMISSION PHYSICIAN EXAMINATION DATE OF ADMISSION: 04/24/2017 ADMITTING DIAGNOSIS: Cardiac with acute congestive heart failure. HISTORY OF PRESENT ILLNESS: The patient is a 81-year-old female who is admitted to inpatient rehab CHF. She was admitted to the hospital with worsening dyspnea and edema despite being on diuretics. Her chest x-ray was worsening. Her BNP was elevated as well. She had a Doppler done on her right upper extremity due to increased edema, but was negative. She lives in her own apartment with 6 hours of assistance per day. She is moderately independent with her mobility with the use of a rolling walker and was set up to be independent with her ADLs. She is currently moderate assist to total assist for mobility, is set up to max assist with her ADLs. She plans to return to her apartment, live alone and get back to her prior level of function or better if possible. COMORBIDITIES: In this patient include type 2 diabetes, bilateral pleural effusions, moderate cardiomegaly, acute hypernatremia, COPD, gout, hyperlipidemia, chronic kidney disease, coronary artery disease and edema. PAST MEDICAL HISTORY: Significant for hypertension, diabetes, CVA, cataracts, IN in the past, asthma, pneumonia, she is home O2 dependent, acid reflux, ulcers and depression. PAST SURGICAL HISTORY: Includes hysterectomy and pacemaker placement. ALLERGIES: SULFA. CURRENT MEDICATIONS: Include vitamin D daily. She is on metformin XR 500 mg daily. She is on Mevacor 40 mg daily, potassium 20 mEq daily, Protonix 40 mg daily and isosorbide 30 mg daily. She is on furosemide 40 mg b.i.d. She is on folic acid 0.4 mg daily, carvedilol 12.5 mg b.i.d. with meals, budesonide 0.5 mg b.i.d., aspirin 325 mg daily, Brovana 15 mcg daily, allopurinol 100 mg daily and tramadol 1 tab q.4 hours. She is on methylprednisolone 60 mg q. 8, Singulair 10 mg daily and albuterol q.i.d. p.r.n. She is on an intermittent resistant sliding scale with insulin and Humalog. She is on Guaifenesin 600 mg b.i.d. and polyethylene glycol 17 grams in 8 ounces of water daily. HABITS: No tobacco use. FAMILY HISTORY: Noncontributory. SOCIAL HISTORY: The patient hopes to return back home and get back to her prior level of function if possible. REVIEW OF SYSTEMS: GENERAL: Does complain of weakness and fatigue. HEENT: Denies cold, cough, or congestion. CARDIOVASCULAR: Denies any chest pain. LUNGS: Does complain of some shortness of breath. HISTORY AND PHYSICAL [id number] GUSTAVOALBERGERMAINE Willie PHYSICAL EXAMINATION: VITAL SIGNS: Stable, afebrile. GENERAL: A well-developed female, in no acute distress, alert upon exam. HEENT: Normocephalic and atraumatic. Mucosa is moist. NECK: Supple. No lymphadenopathy. LUNGS: Clear in upper paige. Does have decreased breath sounds in the bases, but no crackles appreciated. CARDIOVASCULAR: Regular rate and rhythm. ABDOMEN: Benign. EXTREMITIES: No clubbing, cyanosis or edema. NEUROLOGIC: Intact. LABORATORY DATA: Her white count is 9.3, H&H 10 and 34, and platelet count is noted to be 154. Her sodium is 143, potassium 3.9, BUN and creatinine of 58 and 1.3, and blood sugar was noted to be 174. Her CO2 level was 53.8. ASSESSMENT: This is a 81-year-old female patient admitted to rehab with a working diagnosis of cardiac-related congestive heart failure and also chronic obstructive pulmonary disease. The patient has potential to make improvement. We instituted the following multidisciplinary therapies including, but not limited to, physical, occupational, respiratory, speech, nutritional services, prosthetics and orthotics. Given her complex condition and risk for more complications, rehabilitation services cannot be provided at a lower level of care such as a group home facility. PLAN: 1. Admit to [facility] rehab for intensive inpatient therapy to include the following disciplines: A. Physical therapy to improve gait, all transfer skills and bed mobility to a modified independent level. B. Occupational therapy to improve activities of daily living to a modified independent level. C. Case management to assist with discharge planning and placement options. D. Nutrition to assist with nutritional needs. E. Rehabilitation nursing to assist in monitoring the patient's underlying medical conditions and to assist with any type of bowel or bladder management. 2. We will go ahead and keep her anticipated time, which is about 7-10 days. 3. I am going to go ahead and adjust her Lasix and also her Solu-Medrol dosage. 4. We will followup chest x-rays, consult pulmonary if necessary. 5. Discuss this patient during care team staff meeting this week. TRANSINT:[id number] Voice Confirmation ID: [id number] DOCUMENT ID: [id number] FRANCK notes whether there has been none or any medical/functional change since admission: - FRANCK attests patient continues to be appropriate for IRF: - HISTORY AND PHYSICAL [id number] GERMAINE CANCHOLA SCOTT MD at 1219 CC: [id number] DICTATION DATE: 04/25/1729 HABITAT MANAGEMENT COORDINATOR: 04/25/17 1303 ADM IN [place] [id number] [place] [id number]
--- NOTE | 2017-05-01 13:42 | NUR ---
PATIENT WORKING WITH OCCUPATIONAL THERAPIST. SHOWER GIVEN BY OT. MAX TO TOTAL ASST WITH SHOWER.
--- NOTE | 2017-05-01 16:34 | NUR ---
GLUCOSE LEVEL 123. NO SLIDING SCALE INSULIN GIVEN
--- NOTE | 2017-05-01 17:05 | NUR ---
CARE TEAM MEETING: FAMILY AND PATIENT ATTENDED MEETING. AT THIS TIME PLANS ARE FOR PATIENT TO POSSIBLE DISCHARGE TO [facility]. WILL CONTINUE TO FOLLOW WITH PATIENTS PROGRESS. [facility] DISCHARGE DATE IS 05/08/17.
[2017-05-01 18:58] VITALS: BP 120/63
--- NOTE | 2017-05-01 20:00 | NUR ---
PT IN BED WITH HOB UP FOR COMFORT. WATCHING TV. 2 @ 3L VIA N/C. LEFT FA SALINE LOC. TELEMETRY. MEPILEX TO COCCYX C/D/I. FSBS ACHS. BED IN LOWEST POSITION AND CALL LIGHT WITHIN REACH.
--- NOTE | 2017-05-02 | NUR ---
PT IN BED WITH HOB UP FOR COMOFRT. EYES CLOSED. CHEST RISING AND FALLING. BED IN LOWEST POSITION AND CALL LIGHT WITHIN REACH.
--- NOTE | 2017-05-02 02:50 | NUR ---
RESTING QUIETLY IN BED, EYES CLOSED. RESPIRATIONS UNLABORED.
--- NOTE | 2017-05-02 06:46 | NUR ---
RESTING QUIETLY IN BED CALL LIGHT IN REACH
--- NOTE | 2017-05-02 08:58 | NUR ---
PT AM MEDS ADMINISTERED. PT CONTINUES TO HAVE INDIGESTION AND COUGHS UP THICK, CLEAR SECRETIONS AFTER EACH PILL TAKEN. WCTM.
--- NOTE | 2017-05-02 11:15 | NUR ---
PT FSBS 360. 16 UNITS OF INSULIN GIVE. PT DENIES NEEDS. WCTM.
--- NOTE | 2017-05-02 12:55 | NUR ---
PT ASSISTED TO BR. PT BACK IN BED, FINSISHED WITH LUNCH, DENIES NEEDS. BED LOW. CL IN REACH.
[2017-05-02 14:31] VITALS: BP 130/57
--- NOTE | 2017-05-02 14:44 | NUR ---
PT RESTING QUIETLY IN BED, DENIES NEEDS.
[2017-05-02 19:10] VITALS: BP 18/68
--- NOTE | 2017-05-02 19:54 | NUR ---
PT IN BED WITH EYES OPEN WITH FAMILY AT BEDSIDE. PAIN TO COCCYX 5/10 AND LYING ON LEFT SIDE. NO OTHER CONCERNS MADE KNOWN AT THIS TIME. CALL LIGHT IN REACH. WILL CONTINUE TO OBSERVE.
--- NOTE | 2017-05-02 23:37 | NUR ---
PT IN BED WITH EYES CLOSED AND CHEST RISING. NO CONCERNS NOTED AT THIS TIME. CALL LIGHT IN REACH. WILL CONTINUE TO OBSERVE.
--- NOTE | 2017-05-03 02:31 | NUR ---
PT IN BED WITH EYES CLOSED AND CHEST RISING. NO SIGN/SYMPTOMS OF DISTRESS NOTED. CALL LIGHT IN REACH.
[2017-05-03 06:04] LABS: BASOPHILS 0.1 % (0-2); EOSINOPHILS 0 % (0-7); HEMATOCRIT 36.1 % (36.0-48.0); HEMOGLOBIN 11.3 g/dL (12-16); IMMATURE GRANULOCYTES 0.4 % (0-5); LYMPHOCYTES 3.8 % (15-50); MCH 34.1 pg (26.0-34.0); MCHC 31.3 g/dL (31.0-37.0); MCV 109.1 fL (80.0-100.0); MEAN PLATELET VOLUME 10.7 fL (7.4-10.4); MONOCYTES 2.3 % (2-11); NEUTROPHILS 93.4 % (40-80); PLATELET COUNT 160 10x3/uL (130-400); RBC 3.31 10x6/uL (4.00-5.40); RDW 13.2 % (11.5-14.5)
[2017-05-03 06:06] LABS: WBC 14.1 10x3/uL (4.8-10.8)
[2017-05-03 06:20] LABS: CALCIUM 9.1 mg/dL (8.5-10.1); CREATININE - SERUM 1.1 mg/dL (0.6-1.3); POTASSIUM - SERUM 3.8 mmol/L (3.5-5.1)
[2017-05-03 06:22] LABS: CARBON DIOXIDE 53.8 mmol/L (21.0-32.0)
--- NOTE | 2017-05-03 06:23 | NUR ---
PT IN BED WITH EYES CLOSED AND CHEST RISING. AM MEDICATIONS GIVEN PER MAR WITHOUT DIFFICULTY. CALL LIGHT IN REACH.
--- NOTE | 2017-05-03 07:00 | NUR ---
PT WAS RECEIVED AT THE BEGINNING OF THIS SHIFT IN BED AWAKE AND ORIENTED X 3. VERY QUIET LADY. ONLY SPEAKS WHEN SPOKEN TO. STABLE CONDITION OBSERVED. VITAL SIGNS WNL. TELEMETRY ON. NO VERBAL COMPLAINTS OR CONCERNS. CALL LIGHT IN REACH. LEFT ARM SALINE LOCKED. WILL BE MONITORING HER AND ASSISTING PRN WITH ADL'S.
[2017-05-03 07:56] VITALS: BP 136/67
--- NOTE | 2017-05-03 14:29 | NUR ---
Nutrition Follow Up: Pt reported that her appetite is improving. She said that the food does not taste good at times. Pt is eating 75% meal avg on a diabetic [facility] soft diet. Wt loss noted since admit. +BM 05/01/17. Labs reviewed - Glucose, BUN elevated. Meds noted including Reglan, Solu-Medrol, Metformin, Lasix, Humalog. Rec continue current diet. RD will continue to monitor pt progress.
--- NOTE | 2017-05-03 17:16 | NUR ---
PT HAS HAD AN UNEVENTFUL DAY TODAY. SHE DID REQUEST PAIN MEDICATION AT 0915 AND AGAIN AT 3:20PM AND RECEIVED tRAMADOL EACH TIME. GENERAL EDEMA TO BILATERAL LOWER LEGS. MEPILEX ON COCCYX AREA, DRY AND INTACT. FAMILY AT BEDSIDE. CALL LIGHT IN REACH.
--- NOTE | 2017-05-03 19:20 | NUR ---
PT. IN BED WITH HOB UP FOR COMFORT AND IS TALKING WITH VISITORS. ASSESSMENT COMPLETED. NO VOICED NEEDS AT THIS TIME AND PT. REQUESTING TO BE POSITIONED ONTO HER RIGHT SIDE TONIGHT FOR SLEEP. CALL LIGHT WITHIN REACH.
[2017-05-03 19:27] VITALS: BP 148/79
--- NOTE | 2017-05-03 21:21 | NUR ---
DECADRON BOTTLE DROPPED ONTO FLOOR AND BROKE SO ANOTHER BOTTLE WILL BE PULLED FROM THE [employer] SYSTEM AND ADMIN. PER MD'S ORDERS.
--- NOTE | 2017-05-03 23:01 | NUR ---
PT. IN BED WITH HOB UP FOR COMFORT WITH EYES CLOSED AND RESP. EVEN. O2 ON AT 2L/MIN VIA N/C WITHOUT ANY S/S DISTRESS. CALL LIGHT WITHIN REACH.
--- NOTE | 2017-05-04 03:02 | NUR ---
PT. IN BED WITH HOB UP FOR COMFORT. HAVE TRIED MULTIPLE TIMES TO GET PT. TO TURN ONTO ONE SIDE OR THE OTHER TO OFF LOAD WEIGHT ON HER COCCYX AND SHE HAS REFUSED TO STAY ON EITHER SIDE. PT. WILL TELL ME THAT SHE WANTS THE PILLOW AT HER BACK FOR SUPPORT REMOVED CAUSE SHE CAN STAY ON HER SIDE WITHOUT IT AND THEN SHE TURNS IMMEDIATELY ONTO HER BACK AND THAT'S WHERE SHE STAYS. CALL LIGHT WITHIN REACH FOR ANY NEEDS.
--- NOTE | 2017-05-04 06:36 | NUR ---
PT. IN BED WITH HOB UP FOR COMFORT AND AWAKENED EASILY FOR MORNING MEDICATIONS. NO VOICED NEEDS AND HER CALL LIGHT IS WITHIN REACH.
--- NOTE | 2017-05-04 08:00 | NUR ---
SHIFT ASSMT COMPLETED.DENIES NEEDS.MEAL SET-UP GIUEN.
[2017-05-04 09:28] VITALS: BP 155/68
--- NOTE | 2017-05-04 12:00 | NUR ---
SITTING UP EATING LUNCH IN BED.
[2017-05-04 19:28] VITALS: BP 131/51
--- NOTE | 2017-05-04 20:00 | NUR ---
PT IN BED WITH HOB UP FOR COMFORT. RESTING QUIETLY. 2 @ 2L VIA N/C. LEFT FA SALINE LOC. TELEMETRY. PACEMAKER. MEPILEX TO COCCYX C/D/I. FSBS ACHS. MEDS WHOLE IN APPLESAUCE. PT CODE STATUS IS DNR. BED IN LOWEST POSITION AND CALL LIGHT WITHIN REACH.
--- NOTE | 2017-05-05 | NUR ---
PT IN BED WITH HOB UP FOR COMOFRT. EYES CLOSED. CHEST RISING AND FALLING. BED IN LOWEST POSITION AND CALL LIGHT WITHIN REACH.
--- NOTE | 2017-05-05 03:27 | NUR ---
pt resting quietly, breathing appears to be shallow and regular. pt is wearing dark glasses.
--- NOTE | 2017-05-05 08:00 | NUR ---
SHIFT ASSMT COMPLETED,DENIES NEEDS.DRSG INTACT TO BUTTOCKS.
[2017-05-05 08:18] VITALS: BP 152/50
--- NOTE | 2017-05-05 12:00 | NUR ---
FSBS 416,RECHECKED AND NOTED TO BE 438.HUMALOG 20 UNITS GIVEN AND LAB NOTIFIED FOR STAT GLUCOSE.
--- NOTE | 2017-05-05 13:05 | NUR ---
RESULTS CALLED FROM LAB;GLUCOSE 404, NOTIFIED.WILL CONTINUE TO WATCH AND FOLLOW ss ORDERED.
[2017-05-05 20:00] VITALS: BP 124/56
--- NOTE | 2017-05-05 20:00 | NUR ---
PT IN BED WITH HOB UP FOR COMFORT. RESTING QUIETLY. O2 @ 2L VIA N/C. LEFT FA SALINE LOC. TELEMETRY. PACEMAKER. MEPILEX TO COCCYX C/D/I. FSBS ACHS. MEDS WHOLE IN APPLESAUCE. PT CODE STATUS IS DNR. BED IN LOWEST POSITION AND CALL LIGHT WITHIN REACH.
--- NOTE | 2017-05-05 23:25 | NUR ---
PT. IN BED WITH HOB UP FOR COMFORT. EYES CLOSED AND RESP. EVEN. O2 ON AT 2L/MIN VIA N/C AND NO S/S DISTRESS OBSERVED. CALL LIGHT WITHIN REACH.
--- NOTE | 2017-05-06 | NUR ---
PT IN BED WITH HOB UP FOR COMFORT. EYES CLOSED. CHEST RISING AND FALLING. BED IN LOWEST POSITION AND CALL LIGHT WITHIN REACH.
--- NOTE | 2017-05-06 04:00 | NUR ---
PT IN BED WITH HOB UP FOR COMFORT. EYES CLOSED. RESPIRATIONS EVEN AND UNLABORED. BED IN LOWEST POSITION AND CALL LIGHT WITHIN REACH.
[2017-05-06 07:06] LABS: BASOPHILS 0.1 % (0-2); EOSINOPHILS 0 % (0-7); HEMATOCRIT 34.5 % (36.0-48.0); HEMOGLOBIN 10.8 g/dL (12-16); IMMATURE GRANULOCYTES 0.6 % (0-5); MCH 34.4 pg (26.0-34.0); MCHC 31.3 g/dL (31.0-37.0); MCV 109.9 fL (80.0-100.0); MEAN PLATELET VOLUME 10.5 fL (7.4-10.4); MONOCYTES 1.1 % (2-11); NEUTROPHILS 95.2 % (40-80); PLATELET COUNT 152 10x3/uL (130-400); RBC 3.14 10x6/uL (4.00-5.40); RDW 13.2 % (11.5-14.5)
[2017-05-06 07:28] LABS: ANION GAP 1.9 mmol/L (8-16); CALCIUM 8.9 mg/dL (8.5-10.1); CREATININE - SERUM 1.4 mg/dL (0.6-1.3)
[2017-05-06 07:44] LABS: CARBON DIOXIDE 50.1 mmol/L (21.0-32.0)
--- NOTE | 2017-05-06 07:48 | NUR ---
PT UP EATING BREAKFAST, DENIES NEEDS.
[2017-05-06 07:50] VITALS: BP 118/61
--- NOTE | 2017-05-06 10:41 | NUR ---
PATIENT IN REHAB ROOM. WORKING WITH OCCUPATIONAL THERAPIST. DENIES ANY PAIN/DISC AT THIS TIME
--- NOTE | 2017-05-06 12:00 | NUR ---
GLUCOSE LEVEL 282. TEN UNITS OF SLIDING SCALE INSULIN GIVEN
--- NOTE | 2017-05-06 12:07 | NUR ---
SPOKE WITH PATIENT SON AND DUE TO NEITHER CHILDREN LIVING IN STATE THEY WOULD LIKE REFERRAL TO BE SENT TO [facility]. REFERRAL HAS BEEN FAXED WITH CONFORMATION RECIEVED
--- NOTE | 2017-05-06 15:25 | NUR ---
PATIENT IS CONFUSED. ALERT/ORIENT TO SELF. USING CALL LIGHT FOR NEEDS. TURNED ELECTRO MECHANICAL ENGINEER LIGHT TO USE BATHROOM. MOD TO MAX ASST OF ONE FROM BED INTO WHEELCHAIR. PATIENT NEEDED HELP PULLING DOWN PANTS AND BRIEFS. CONT OF BOWEL AND BLADDER. NEEDS HELP WITH [facility]
--- NOTE | 2017-05-06 17:52 | NUR ---
PATIENTS SON VISITING IN ROOM. PATIENT HAS CALL LIGHT WITHIN REACH. VOICES NO NEEDS AT THIS TIME
--- NOTE | 2017-05-06 19:28 | NUR ---
PT RECEIVED IN BED WITH EYES CLOSED AND CHEST RISING. NO CONCERNS NOTED. CALL LIGHT IN REACH. WILL CONTINUE TO OBSERVE.
[2017-05-06 22:19] VITALS: BP 116/56
--- NOTE | 2017-05-07 00:34 | NUR ---
PT IN BED WITH EYES CLOSED AND CHEST RISING. NO CONCERNS NOTED AT THIS TIME. CALL LIGHT IN REACH. WILL CONTINUE TO OBSERVE.
--- NOTE | 2017-05-07 02:26 | NUR ---
PT IN BED WITH EYES CLOSED AND CHEST RISING. NO SIGN/SYMPTOMS OF DISTRESS NOTED. CALL LIGHT IN REACH.
--- NOTE | 2017-05-07 06:44 | NUR ---
PT IN BED WITH EYES CLOSED AND CHEST RISING. RECEIVED AM MEDICATIONS WITHOUT DIFFICULTY. CALL LIGHT IN REACH.
--- NOTE | 2017-05-07 07:18 | NUR ---
INTRODUCED SELF TO PT, PT STATES NO NEEDS AT THIS TIME, WILL CONTINUE TO MONITOR, CALL LIGHT WIKAYLININ REACH.
--- NOTE | 2017-05-07 08:08 | NUR ---
PT EATING BREAKFAST, DENIES NEEDS. CL IN REACH.
[2017-05-07 09:22] VITALS: BP 135/63
--- NOTE | 2017-05-07 09:44 | NUR ---
MORNING MEDICATION GIVEN, PT TOLERATED WELL, ASSISTED PT TO BATHROOM AND BACK TO BED VIA WHEELCHAIR WITH MOD ASSISTANCE, WILL CONTINUE TO MONITOR, CALL LIGHT WITHIN REACH.
[2017-05-07] MEDS ORDERED: MEDROL DOSE PACK4 MG PO (10:21)
--- NOTE | 2017-05-07 10:46 | NUR ---
PATIENT HAS BEEN ACCEPTED TO [facility] AND WILL DISCHARGE THERE ON 05/08/17 VIA [facility]. PATIENT CHOICE FORM FOR SNF AND IMFM FORM SIGNED AND FILED IN CHART. [facility] WILL BE HERE AT 10:00 ON 05/08/17
--- NOTE | 2017-05-07 12:05 | NUR ---
PT SITTING UP IN BED WATCHING TV, PT STATES NO NEEDS AT THIS TIME, WILL CONTINUE TO MONITOR, CALL LIGHT WITHIN REACH.
--- NOTE | 2017-05-07 12:47 | NUR ---
REMOVED IV FROM LEFT FOREARM CATH INTACT, PT TOLERATED WELL, WILL CONTINUE TO MONITOR, CALL LIGHT WITHIN REACH.
--- NOTE | 2017-05-07 13:48 | NUR ---
PT IN PT. WILL CONTINUE TO MONITOR.
--- NOTE | 2017-05-07 15:02 | NUR ---
NUTRITION MONITORING & EVAL CHART REVIEWED. PT CURRENTLY SLEEPING. INTAKE RECENT MEALS ~60%. MECH SOFT DIET/CHOPPED MEATS. RD FOLLOWING
[2017-05-07 19:13] VITALS: BP 116/66
--- NOTE | 2017-05-07 19:34 | NUR ---
PT RECEIVED IN BED WITH EYES OPEN VISITING WITH SON. NO COMPLANTS OR CONCERN MADE KNOWN. CALL LIGHT IN REACH.
--- NOTE | 2017-05-07 23:03 | NUR ---
PT IN BED WITH EYES OPEN AND CHEST RISING. RECEIVED SCHEDULED MEDICATIONS PER MAR. NO NEEDS OR CONCERNS MADE KNOWN. CALL LIGHT IN REACH.
--- NOTE | 2017-05-08 02:35 | NUR ---
PT IN BED WITH EYES CLOSED AND CHEST RISING. NO CONCERNS NOTED. CALL LIGHT IN REACH.
--- NOTE | 2017-05-08 07:30 | NUR ---
ASSISTED OOB TO WC AND TAKEN TO BR/WC.SET-UP IN WC BESIDE BED.MEAL TRAY GIVEN;SET-UP PROVIDED.CL IN REACH.
--- NOTE | 2017-05-08 08:00 | NUR ---
PT UP IN WHEELCHAIR EATING BREAKFAST CALL LIGHT IN REACH NO PROBLEMS WILL MONITER
--- NOTE | 2017-05-08 09:59 | NUR ---
PATIENT DISCHARGING TO [facility]. NO DME OR HOME HEALTH NEEDED AT THIS TIME. PATIENT WILL TRANSPORT VIA [facility]. APPOINTMENT WITH HER PCP WILL BE MADE AT TIME OF DISCHARGE FROM [facility], DR. GUNDERSON 06/05/17 @ 10:30. PATIENT CHOICE FORM FOR SNF AND IMFM FORM SIGNED, EXPLAINED AND FILED IN CHART
--- NOTE | 2017-05-08 11:00 | NUR ---
PT DISCHARGED TO [facility] VIA WHEELCHAIR REPORT CALLED TO KENYATTA BALL LPN DISCHARGE SUMMARY AND MEDS SENT WITH CONTRACT TECHNICIAN
== END 2017-05-08 11:32 | DRG 292 ==
LOC: D.REHAB 16:49
PROVIDERS: ADMIT Emergency Medicine
DX: I13.0 Hypertensive heart and chronic kidney disease with heart failure and stage 1 through stage 4 chronic kidney disease, or unspecified chronic kidney disease (principal); J90 Pleural effusion, not elsewhere classified; E87.0 Hyperosmolality and hypernatremia; I50.9 Heart failure, unspecified; N18.2 Chronic kidney disease, stage 2 (mild); E11.22 Type 2 diabetes mellitus with diabetic chronic kidney disease; J44.9 Chronic obstructive pulmonary disease, unspecified; M10.9 Gout, unspecified; E78.5 Hyperlipidemia, unspecified; I25.10 Atherosclerotic heart disease of native coronary artery without angina pectoris; R60.9 Edema, unspecified; E11.65 Type 2 diabetes mellitus with hyperglycemia